=== PATIENT | male | born 1975 | race Asian ===

== ENCOUNTER 2020-07-21 09:57 | Outpatient (CLI) | payer BC | END 2020-07-21 09:58 | disposition home or self-care (01) | LOC: CSHULT 09:57 | PROVIDERS: ATTEND Family Medicine | DX: R10.11 Right upper quadrant pain (principal); K76.0 Fatty (change of) liver, not elsewhere classified; R16.0 Hepatomegaly, not elsewhere classified | CPT/HCPCS: 76705 ==

== ENCOUNTER 2020-08-13 08:21 | Outpatient (CLI) | payer BC | END 2020-08-13 08:22 | disposition home or self-care (01) | LOC: CSHMRI 08:21 | PROVIDERS: ATTEND Family Medicine | DX: R16.0 Hepatomegaly, not elsewhere classified (principal); D18.09 Hemangioma of other sites | CPT/HCPCS: 74183 ==

== ENCOUNTER 2023-01-17 09:28 | Outpatient (CLI) | payer BC ==
[2023-01-17] MEDS ORDERED: Iopamidol 300 61% 100 ML VIAL FS ONE (10:00)
== END 2023-01-17 09:29 | disposition home or self-care (01) ==
LOC: CSHCT 09:28
PROVIDERS: ATTEND Family Medicine
DX: R91.1 Solitary pulmonary nodule (principal)
CPT/HCPCS: 71260